=== PATIENT | female | born 1995 | race Hispanic/Latino ===

== ENCOUNTER 2020-06-09 20:15 | Observation (INO) | payer MEDICAID ==
[~2020-06-09] VITALS: Ht 162.6 cm; Wt 100.2 kg
[~2020-06-09 20:15] MED LIST: PNV1TABL77 PO
[2020-06-09 20:50] LABS: APPEARANCE,URINE Clear (CLEAR); BILIRUBIN,URINE Negative (NEGATIVE); COLOR,URINE Yellow (YELLOW); GLUCOSE, URINE (UA) Negative (NEGATIVE); KETONES,URINE Negative (NEGATIVE); LEUKOCYTE ESTERASE ,URINE Negative (NEGATIVE); NITRATE,URINE Negative (NEGATIVE); OCCULT BLOOD,URINE Negative (NEGATIVE); PH,URINE 6.5 (5.0-8.0); PROTEIN,URINE Negative (NEGATIVE)
== END 2020-06-09 21:40 | disposition home or self-care (01) ==
LOC: EDH 20:15 → LDH 20:16
PROVIDERS: ADMIT Obstetrics & Gynecology; ATTEND Obstetrics & Gynecology
DX: O36.8130 Decreased fetal movements, third trimester, not applicable or unspecified (principal); O26.853 Spotting complicating pregnancy, third trimester; Z90.49 Acquired absence of other specified parts of digestive tract; Z3A.38 38 weeks gestation of pregnancy
CPT/HCPCS: 59025; 81003; 99284; G0378

== ENCOUNTER 2020-06-15 12:13 | Inpatient (IN) | payer MEDICAID ==
[~2020-06-15] VITALS: Ht 162.6 cm; Wt 99.8 kg
[2020-06-15] MEDS ORDERED: OXYTOCIN 10 USP UNITS/ML 20 UNIT in LACTATED RINGERS 1000ML 1,000 ML IV SCH (12:30)
[2020-06-15] MEDS ORDERED: EPHEDRINE SULFATE 50 MG/ML AMPULE IVP PRN (12:30)
[2020-06-15] MEDS ORDERED: LACTATED RINGERS 500 ML 500 ML IV PRN (12:30)
[2020-06-15] MEDS ORDERED: LACTATED RINGERS 1000ML 1,000 ML IV PRN (12:30)
[2020-06-15] MEDS ORDERED: NALOXONE HCL 0.4 MG/1 ML ML IV PRN (12:30)
[2020-06-15] MEDS ORDERED: BUTORPHANOL TARTRATE 2 MG/ML IVP PRN (12:45)
[2020-06-15 12:59] LABS: HEMATOCRIT 37.9 % (36-48); MEAN CORPUSCULAR HEMOGLOBIN 28.8 pg (27.0-33.0); MEAN CORPUSCULAR HGB CONC 34.8 g/dL (32.0-36.0); MEAN CORPUSCULAR VOLUME 82.8 fL (79-99); RED BLOOD CELL COUNT(AUTO) 4.58 MIL/uL (4.00-5.50); RED CELL DISTRIBUTION WIDTH 12.8 % (11.0-15.5); WHITE BLOOD COUNT (AUTO) 8.8 K/uL (4.8-10.8)
[2020-06-15] MEDS ORDERED: OXYTOCIN-LR 20 UNITS/1000 ML 1,000 ML IV SCH ×2 (13:30→17:15)
[2020-06-15] MEDS ORDERED: FENTANYL CITRATE PF 50 MCG/1 ML 2ML VIAL ONE (13:54)
[2020-06-15 14:09] LABS: APPEARANCE,URINE Clear (CLEAR); BILIRUBIN,URINE Negative (NEGATIVE); COLOR,URINE Yellow (YELLOW); GLUCOSE, URINE (UA) Negative (NEGATIVE); KETONES,URINE Trace mg/dL (NEGATIVE); LEUKOCYTE ESTERASE ,URINE Negative (NEGATIVE); NITRATE,URINE Negative (NEGATIVE); OCCULT BLOOD,URINE Negative (NEGATIVE); PH,URINE 6.5 (5.0-8.0); PROTEIN,URINE Negative (NEGATIVE); UROBILINOGEN,URINE 0.2 mg/dL (0.2-1.0)
[2020-06-15 14:32] LABS: BACTERIA,URINE Rare /HPF (None Seen); RBC,URINE 0-1 /HPF (0-1); SQUAMOUS EPITHELIAL CELL,UR Rare /HPF (0-2); WBC,URINE 0-1 /HPF (0-1)
[2020-06-15] MEDS ORDERED: WITCH HAZEL 1 PAD TP PRN (17:15)
[2020-06-15] MEDS ORDERED: LANOLIN 30GM OINTMENT TP PRN (17:15)
[2020-06-15] MEDS ORDERED: DIPH,PERTUSS(ACELL),TET VAC/PF 0.5 ML VIAL IM PRN (17:15)
[2020-06-15] MEDS ORDERED: MEASLES/MUMPS/RUBELLA VACCINE, LIVE 0.5 ML/VIAL SQ PRN (17:15)
[2020-06-15] MEDS ORDERED: ACETAMINOPHEN 325 MG TAB PO PRN (17:15)
[2020-06-15] MEDS ORDERED: ACETAMINOPHEN-CODEINE 300/30MG TAB PO PRN (17:15)
[2020-06-15] MEDS ORDERED: BENZOCAINE/LANOLIN/ALOE VERA 60 ML AEROSOL TP PRN (17:15)
--- NOTE | 2020-06-15 19:05 | NUR ---
Report received from Jayashree Romo RN. At 1930 patient received via wheelchair accompanied by Jayashree Kyle RN & Will Brizuela, surgical technology instructor. She had an IV of LR with 20 units Pitocin infusing well. Patient and oriented to the room, call light given. Plan of care discussed with them, both verbalizes understanding.
[2020-06-15 20:19] VITALS: BP 119/70
[2020-06-15] MEDS: DOCUSATE SODIUM 100 MG CAP PO SCH (21:59)
[2020-06-15] MEDS: IBUPROFEN 600 MG TABLET PO PRN (22:03)
[2020-06-15 23:37] VITALS: BP 116/66
[2020-06-16 03:35] VITALS: BP 116/77
[2020-06-16] MEDS: IBUPROFEN 600 MG TABLET PO PRN ×2 (05:17→12:07)
[2020-06-16 06:45] LABS: HEMATOCRIT 32.4 % (36-48); MEAN CORPUSCULAR HEMOGLOBIN 28.6 pg (27.0-33.0); MEAN CORPUSCULAR HGB CONC 34.6 g/dL (32.0-36.0); MEAN CORPUSCULAR VOLUME 82.7 fL (79-99); RED BLOOD CELL COUNT(AUTO) 3.92 MIL/uL (4.00-5.50); RED CELL DISTRIBUTION WIDTH 12.6 % (11.0-15.5); WHITE BLOOD COUNT (AUTO) 12.6 K/uL (4.8-10.8)
[2020-06-16 07:18] LABS: HEPATITIS Bs ANTIGEN SCREEN P Negative (Negative)
[2020-06-16 07:44] VITALS: BP 121/71
[2020-06-16] MEDS: DOCUSATE SODIUM 100 MG CAP PO SCH (09:12)
[2020-06-16 11:34] VITALS: BP 104/66
[2020-06-16 16:14] VITALS: BP 124/84
--- NOTE | 2020-06-16 17:40 | NUR ---
pt is discharged, verbal and written discharge instructions given, pls refer to [facility]care. informed of the follow up appointment. prescription given. informed to call the doctor for further concerns. pt voiced understanding to all things discussed. Waiting for baby to be discharged. Addendum: 06/16/20 at 1758 by RED GALDAMEZ RN Amended: Links added.
--- NOTE | 2020-06-16 18:55 | NUR ---
pt is dismissed with baby in stable condition, brought to private car via wheelchair Addendum: 06/16/20 at 1900 by RED GALDAMEZ RN Amended: Links added.
== END 2020-06-16 18:55 | disposition home or self-care (01) | DRG 560 ==
LOC: LDH 12:13 → WSH 19:30
PROVIDERS: ADMIT Obstetrics & Gynecology; ATTEND Obstetrics & Gynecology
PROC: 10E0XZZ Delivery of Products of Conception, External Approach (ICD-10-PCS; principal; 2020-06-15)
PROC: 10907ZC Drainage of Amniotic Fluid, Therapeutic from Products of Conception, Via Natural or Artificial Opening (ICD-10-PCS; 2020-06-15)
PROC: 3E0R3BZ Introduction of Anesthetic Agent into Spinal Canal, Percutaneous Approach (ICD-10-PCS; 2020-06-15)
PROC: 00HU33Z Insertion of Infusion Device into Spinal Canal, Percutaneous Approach (ICD-10-PCS; 2020-06-15)
PROC: 3E0234Z Introduction of Serum, Toxoid and Vaccine into Muscle, Percutaneous Approach (ICD-10-PCS; 2020-06-15)
PROC: 3E0134Z Introduction of Serum, Toxoid and Vaccine into Subcutaneous Tissue, Percutaneous Approach (ICD-10-PCS; 2020-06-15)
DX: O80 Encounter for full-term uncomplicated delivery (principal); Z3A.39 39 weeks gestation of pregnancy; Z37.0 Single live birth; Z23 Encounter for immunization
CPT/HCPCS: 36415; 81001; 85027; 86592; 86850; 86900; 86901; 87340; 90715; A4314; A4351; A4606; G0378; J2590; J3010; J7120